=== PATIENT | male | born 1990 | race Caucasian/White ===

== ENCOUNTER 2017-03-14 00:23 | Emergency (ER) | payer OTHER ==
[~2017-03-14] VITALS: Ht 190.5 cm; Wt 120.2 kg
--- NOTE | ~2017-03-14 | EKG ---
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
[2017-03-14] MEDS ORDERED: IBUPROFEN100 MG PO (00:33)
[2017-03-14] MEDS ORDERED: NAPROSYN500 MG PO (01:45)
== END 2017-03-14 03:10 | disposition home or self-care (01) ==
LOC: ER 00:23
DX: R07.89 Other chest pain (principal); M77.12 Lateral epicondylitis, left elbow